=== PATIENT | male | born 1965 | race Two or more races ===

== ENCOUNTER 2020-08-09 13:18 | Emergency (ER) | payer OTHER ==
[2020-08-09 13:23] VITALS: TEMP 98; BMI 29.0
[2020-08-09 15:16] LABS: BASO % 0.2 % (0-2.0); EOS % 0.2 % (0-4.5); HEMATOCRIT 46.4 % (35.4-49); HEMOGLOBIN 15.3 GM/dL (11.7-16.9); MCH 31.8 pg (25.7-33.7); MEAN CELL VOLUME 96.3 fl (80-96); MEAN PLT VOLUME 8.9 fl (7.5-11.1); MONO % 8.9 % (3.8-10.2); NEUT % 68.7 % (42.8-82.8); PLATELET COUNT 190 10^3/uL (134-434); RBC 4.82 M/mm3 (4.00-5.60); RDW 12.4 % (11.9-15.9); WHITE BLOOD COUNT 11.3 K/mm3 (4.0-10.0)
[2020-08-09 15:45] LABS: CHLORIDE 96 mmol/L (98-107); SODIUM 134 mmol/L (136-145)
[2020-08-09 15:47] LABS: CALCIUM 9.5 mg/dL (8.5-10.1)
[2020-08-09 15:48] LABS: ALBUMIN 4.1 g/dl (3.4-5.0); ANION GAP 6 MMOL/L (8-16); BLOOD UREA NITROGEN 16.8 mg/dL (7-18); CO2 32 mmol/L (21-32); GLUCOSE,RANDOM 163 mg/dL (74-106)
[2020-08-09 15:50] LABS: CREATININE 0.8 mg/dL (0.55-1.3); SGOT/AST 20 U/L (15-37); SGPT/ALT 28 U/L (13-61)
[2020-08-09 15:52] LABS: BILIRUBIN,TOTAL 0.5 mg/dL (0.2-1); TOT PROT 7.4 g/dl (6.4-8.2)
[2020-08-09 15:53] LABS: ALK PHOS 84 U/L (45-117)
[2020-08-09 16:40] LABS: PH,URINE 6.5 (5.0-8.0); URINE APPEARANCE CLEAR; URINE BILIRUBIN NEGATIVE (NEGATIVE); URINE COLOR YELLOW; URINE GLUCOSE (UA) NEGATIVE (NEGATIVE); URINE KETONE NEGATIVE (NEGATIVE); URINE LEUK ESTERASE NEGATIVE (NEGATIVE); URINE NITRITE NEGATIVE (NEGATIVE); URINE PROTEIN NEGATIVE (NEGATIVE); URINE UROBILINOGEN 0.2 mg/dL (0.2-1.0)
[2020-08-09 16:51] LABS: URINE AMPHETAMINES NEGATIVE (NEGATIVE); URINE BARBITURATES NEGATIVE (NEGATIVE)
[2020-08-09 16:52] LABS: OPIATES, URI NEGATIVE (NEGATIVE)
[2020-08-09 16:55] LABS: COCAINE, UR NEGATIVE (NEGATIVE)
[2020-08-09 16:59] LABS: METHADONE, UR POSITIVE (NEGATIVE); PHENCYCLIDINE,URINE NEGATIVE (NEGATIVE); URINE BENZODIAZEPINES POSITIVE (NEGATIVE)
[2020-08-09 18:15] VITALS: BP 144/75; PULSE 65
[2020-08-09] MEDS ORDERED: BACITRACIN 0.9 GM PACKET ONE (18:57)
== END 2020-08-09 20:19 | disposition home or self-care (01) ==
LOC: JER 13:18
PROC: 0HQ4XZZ Repair Neck Skin, External Approach (ICD-10-PCS; principal; 2020-08-09)
DX: S16.2XXA Laceration of muscle, fascia and tendon at neck level, initial encounter (principal)
CPT/HCPCS: 36415; 70498-TC; 71045-TC-FY; 80053; 80307; 81003; 84484; 85025; 93005; 93010; 99285-25; C9803; Q9967; U0003; U0005